=== PATIENT | female | born 1970 | race Hispanic/Latino ===

== ENCOUNTER 2016-09-16 15:24 | Emergency (ER) | payer SELFPAY ==
[~2016-09-16] VITALS: Ht 154.9 cm; Wt 58.5 kg
[~2016-09-16 15:24] MED LIST: PARO10TA2 PO
[2016-09-16 15:51] VITALS: BP 112/74; PULSE 78; RESP 18; O2SAT 100
[2016-09-16 18:00] LABS: BASOPHILS % (AUTO) 0.3 % (0-3); EOSINOPHILS % (AUTO) 4.4 % (0-5); MONOCYTES % (AUTO) 6.1 % (4-12); Mean Corpuscular Hemoglobin 31.2 pg (27.0-35.0); Mean Corpuscular Volume 91.4 fL (81-100); NEUTROPHILS % (AUTO) 50.6 % (40-74); Platelet Count 170 bil/L (150-400)
[2016-09-16 18:24] LABS: Magnesium 2.2 mg/dL (1.6-2.6)
--- NOTE | 2016-09-16 18:25 | ED.REPORT ---
HPI-General Illness Date of Service Sep 16, 2016 ED Provider: Howard Vicente DO A 45 year old female with a history of UTI and bilateral tubal ligation presents to the ED complaining of dysuria. This is accompanied by hematuria, right flank pain, and suprapubic abdominal pain. The dysuria and abdominal pain began two weeks ago while the flank pain began yesterday. The flank pain is worsened by standing. The pt noticed hematuria today. The pt also reports that she fell two months ago and has been experiencing back pain since this point. Nursing Notes Stated Complaint: PAIN IN BACK,TROUBLE URINATING Chief Complaint: Back Pain or Injury Nursing Notes Reviewed: Yes Allergies: Coded Allergies: No Known Allergies (Unverified , 09/28/14) Scheduled Paroxetine (Paroxetine) 10 Mg Tablet 10 MG PO HS General Time Seen by MD: 18:24 Chief Complaint Other (difficulty urinating) Hx Obtained From: Patient Arrived By: Walk-in Sudden in Onset?: No Onset Occurred: More than a week ago... (2 weeks) Symptom Duration: Since onset Recent Healthcare: No recent doctor visit, No recent hospitalization Similar Sx Previous: No Past Medical History Past Medical History UTI Past Surgical History bilateral tubal ligation Smoking History Never Smoker Social History Other Social History: Good social support Ambulatory Status Independent Review of Systems Full Review of Systems Constitutional: Denies: Fever Respiratory: Denies: Non-productive cough, Shortness of breath Cardiovascular: Denies: Chest pain GI: Reports: Abdominal pain Female: Reports: Dysuria, Flank pain (right), Hematuria Musculoskeletal: Reports: Back pain, Denies: Neck pain Skin: Denies Rash Complete sys rev & neg: except as marked. Physical Exam Vital Signs Vital Signs Date Time Temp Pulse Resp B/P Pulse Ox O2 Delivery O2 Flow Rate FiO2 09/16/16 20:25 36.8 66 16 129/78 99 Room Air 09/16/16 20:12 36.8 66 16 129/78 99 Room Air 09/16/16 15:51 36.6 78 18 112/74 100 Room Air Initial VS: Reviewed General/Constitutional: Awake, Alert Head / Eyes: Atraumatic, Normocephalic, PERRL, EOMI ENT: Atraumatic, Airway patent, Mucous membranes moist Neck: Atraumatic, Supple, Full range of motion Respiratory / Chest: Atraumatic, Breath sounds NL, Breath sounds = bilat, No respiratory distress Cardiovascular: Heart rate NL, Regular rhythm, Heart sounds NL Abdomen: Atraumatic, Soft suprapubic tenderness Back: Atraumatic, Full range of motion right CVAT Upper Extremities Upper Extremity / MS: Atraumatic, Full range of motion Lower Extremity / Pelvis / MS: Atraumatic, Full range of motion Skin: Atraumatic, Color NL, No rash, Warm, Dry Neurologic: Oriented X3, Speech NL, No motor deficits, No sensory deficits Psychiatric: Affect NL, Mood NL Interpretation & Diagnostics Interpretation & Diagnostics: CT KUB: IMPRESSION: No acute abnormality. Normal appendix. No urolithiasis no evidence of urinary obstruction. Right sacral ala insufficiency fracture although this would be subacute or chronic given the callus formation. Please correlate clinically. Dictated by: Sudeep Edmond M.D. on 09/16/2016 at 19:48 Approved by: Sudeep Edmond M.D. on 09/16/2016 at 19:54 Lab Results Interpretation Result Diagram: 09/16/16 1745 09/16/16 1706 Test 09/16/16 17:06 09/16/16 17:45 09/16/16 18:45 Sodium Level 135mEq/L (134-144) Potassium Level 3.7mEq/L (3.5-5.2) Chloride Level 101mEq/L (97-108) Carbon Dioxide Level 22mmol/L (18-29) Blood Urea Nitrogen 14mg/dL (6-24) Creatinine 0.50mg/dL (0.57-1.00) Estimat Glomerular Filtration Rate 189mL/min (>59) Glucose Level 107mg/dL (60-99) Calcium Level 8.9mg/dL (8.5-10.1) Magnesium Level 2.2mg/dL (1.6-2.6) Total Bilirubin 0.2mg/dL (0.0-1.2) Aspartate Amino Transf (AST/SGOT) 16U/L (0-50) Alanine Aminotransferase (ALT/SGPT) 12U/L (0-32) Alkaline Phosphatase 57U/L (25-150) Total Protein 7.3g/dL (6.4-8.4) Albumin 4.3g/dL (3.4-5.0) Lipase 52U/L (13-60) White Blood Count 5.9th/mm3 (3.8-10.1) Red Blood Count 4.20mil/mm3 (3.90-5.20) Hemoglobin 13.1g/dL (12.0-15.6) Hematocrit 38.4% (35.0-46.0) Mean Corpuscular Volume 91.4fL (81-100) Mean Corpuscular Hemoglobin 31.2pg (27.0-35.0) Mean Corpuscular Hemoglobin Concent 34.1% (32.0-37.0) Red Cell Distribution Width 13.3% (12.3-15.4) Platelet Count 170bil/L (150-400) Neutrophils (%) (Auto) 50.6% (40-74) Lymphocytes (%) (Auto) 38.4% (14-46) Monocytes (%) (Auto) 6.1% (4-12) Eosinophils (%) (Auto) 4.4% (0-5) Basophils (%) (Auto) 0.3% (0-3) Urine Color Yellow (YELLOW) Urine Appearance Clear (CLEAR,HAZY) Urine pH 7.5 (5.0-8.0) Urine Specific [place] 1.005 (1.003-1.035) Urine Protein Negativemg/dL (NEG,TRACE) Urine Glucose (UA) Negativemg/dL (NEGATIVE) Urine Ketones Negativemg/dL (NEGATIVE) Urine Occult Blood Negative (NEGATIVE) Urine Nitrite Negative (NEGATIVE) Urine Bilirubin Negative (NEGATIVE) Urine Urobilinogen Normalmg/dL (NORMAL) Urine Leukocyte Esterase Negative (NEGATIVE) Urine RBC 0-2/hpf (0-2) Urine WBC 0-5/hpf (0-5) Urine Epithelial Cells Few/hpf (NONE-MOD) Urine Crystals None seen (NONE SEEN) Urine Bacteria Few/hpf (NONE-FEW) Urine Hyaline Casts None/lpf (NONE) Urine Granular Casts None seen (NONE SEEN) Urine Waxy Casts None seen (NONE SEEN) Urine Red Blood Cell Casts None seen (NONE SEEN) Urine White Blood Cell Casts None seen (NONE SEEN) Urine Mucus None seen (None Seen) Urine Trichomonas None seen (NONE SEEN) Urine Yeast None (NONE SEEN) Urinalysis Comment None Pulse Oximetry Interpretation Pulse Oximetry Interpretation: 100% on room air Pulse Oximetry: Pulse Ox normal Re-Eval/Medical Decision Source of Hx: Old records Time of Eval: 19:01 Patient Status: Condition improved Re-Evaluation/Progress Note: Pt rechecked, who is comfortable. She is informed of her lab results and additional history is obtained. Time of Eval: 20:02 Patient Status: Condition improved Re-Evaluation/Progress Note: Pt rechecked, who is comfortable. She is informed of her radiology results and diagnosis, as well as the plan for discharge. The pt understands and agrees with the plan. All questions are addressed at this time. Counseled Regarding: Diagnosis, Lab results, Need for follow-up, When/why to return to ED Discharge & Departure Primary Impression: Back pain Back pain location: back pain in unspecified location Chronicity: acute Back pain laterality: unspecified Qualified Code: M54.9 - Dorsalgia, unspecified Additional Impressions: Dysuria Sacral insufficiency fracture with delayed healing Disposition: Home Discharge Condition All VS Reviewed: Yes Condition: Stable Patient Instructions: Acute Low Back Pain (ED), Sacral Fracture (ED), Urinary Tract Infection in Women (ED) Additional Instructions: Take 1-2 [place] every 6 hours as needed for severe pain. Do no drink, drive, or consume acetaminophen while taking the [place]. Take Motrin as directed for moderate pain. Follow up with your primary care physician for further evaluation. Return to the emergency department if you develop any new or worsening symptoms. The CAT scan shows that you have a sacral fracture as described. I suspect this is why you have been having back pain. The [place] should help this. I would like you to talk to your primary care physician about being tested for possible osteoporosis. Take a stool softener to prevent constipation from the [place]. Your urine sample and blood tests were otherwise normal. Return if any problems or any worsening symptoms. Referrals: Marcia Reza MD (PCP) Che Attestation Portions of this note were transcribed by Alexandra Mcelroy. I, Dr. Vicente personally performed the history, physical exam and medical decision-making; I reviewed and confirmed the accuracy of the information in the transcribed note. Signed by: Che Bill, 09/16/2016 and 2045. copies to: Marcia Reza MD, Todd P DO Sep 16, 2016 18:25 ALEXANDRA MCELROY 7, 2017 18:50
[2016-09-16] MEDS ORDERED: HYDROcodone-APAP 5-325 mg Tablet PO ONE (18:50)
[2016-09-16 19:16] LABS: APPEARANCE,URINE CLEAR (CLEAR,HAZY); COLOR,URINE YELLOW (YELLOW)
[2016-09-16 19:17] LABS: OCCULT BLOOD,URINE NEGATIVE (NEGATIVE); PH,URINE 7.5 (5.0-8.0); UROBILINOGEN,URINE NORMAL (NORMAL)
--- NOTE | 2016-09-16 19:55 | DRSVH ---
PROCEDURE: CT KUB ([id number]) INDICATIONS: right flank pain, dysuria, near syncope TECHNIQUE: Noncontrast 5 mm thick sections acquired from the diaphragms to the symphysis. 5 mm thick coronal an d sagittal reformats were then performed. For radiation dose reduction, the following was used: aut omated exposure control, adjustment of mA and/or kV according to patient size. COMPARISON: None. FINDINGS: Image quality: Excellent. Lung bases: Lung bases are clear. Heart size is normal. Urinary system: Both kidneys are normal in size. No kidney stones. No hydronephrosis or perinephri c fat stranding. Both ureters appear non-dilated throughout their expected courses. Bladder wall th ickness is normal; no calcified bladder stones. Other solid organs: Liver and spleen are normal in size. Gallbladder contracted otherwise unremarka ble. Pancreas is normal in contours. No adrenal nodules. Peritoneum and bowel: Unenhanced bowel loops demonstrate normal wall thickness and caliber. No free fluid or air. Nodes and vessels: No retroperitoneal or mesenteric adenopathy by size criteria. Aorta and inferior vena cava are normal in caliber. Abdominal wall: No ventral hernias. Pelvis: No free pelvic fluid. No inguinal hernias or adenopathy. Probable dominant physiologic fol licle in the right adnexal region Bones: No suspicious bony lesions. Possible age-indeterminate right sacral ala insufficiency fractu re No vertebral body compression fractures. IMPRESSION: No acute abnormality. Normal appendix. No urolithiasis no evidence of urinary obstruction. Right sacral ala insufficiency fracture although this would be subacute or chronic given the callus f ormation. Please correlate clinically. Dictated by: Sudeep Edmond M.D. on 09/16/2016 at 19:48 Approved by: Sudeep Edmond M.D. on 09/16/2016 at 19:54
[2016-09-16 20:12] VITALS: BP 129/78; PULSE 66; RESP 16; O2SAT 99
[2016-09-16 20:25] VITALS: BP 129/78; PULSE 66; RESP 16; O2SAT 99
== END 2016-09-16 20:26 | disposition home or self-care (01) ==
LOC: SED 15:24
DX: R30.0 Dysuria (principal); M54.9 Dorsalgia, unspecified; M84.48XG Pathological fracture, other site, subsequent encounter for fracture with delayed healing; R31.9 Hematuria, unspecified; R10.31 Right lower quadrant pain; Z87.440 Personal history of urinary (tract) infections; Z87.828 Personal history of other (healed) physical injury and trauma